=== PATIENT | male | born 1970 | race Two or more races ===

== ENCOUNTER → 2023-12-18 | Emergency (ER) | payer OTHER ==
[~2023-12-18] VITALS: Ht 175.3 cm; Wt 75.3 kg
== END | disposition home or self-care (01) ==
LOC: ER 10:29
DX: R07.9 Chest pain, unspecified (principal)

== ENCOUNTER 2023-12-25 08:25 | Outpatient (CLI) | payer OTHER | END 2023-12-25 14:26 | disposition home or self-care (01) | LOC: SONOGRAMA 08:25 | PROVIDERS: ATTEND Radiology Diagnostic Radiology | DX: R22.2 Localized swelling, mass and lump, trunk (principal) ==